=== PATIENT | male | born 1955 | race Caucasian/White ===

== ENCOUNTER 2023-10-12 22:59 | Inpatient (IN) | payer BC, MEDICARE, SELFPAY ==
[2023-10-12] VITALS (7 sets, daily range): BP systolic 131–153; BP diastolic 77–88; BMI 31.0; BMI 30.8
[2023-10-12 17:13] LABS: Glucose - Point of Care 106 mg/dl (70-99)
[2023-10-12 17:21] LABS: % Basophils 0.9 % (0-2); % Eosinophils 3.5 % (0-6); % Immature Granulocytes 0.2 % (0-0.5); % Lymphocytes 26.3 % (20.5-51.1); % Monocytes 13.4 % (1.7-9.3); % Neutrophils 55.7 % (42.2-75.2); Absolute Basophils 0.1 10^3/uL (0-0.2); Absolute Eosinophils 0.3 10^3/uL (0-0.7); Absolute Lymphocytes 2.1 10^3/uL (1.2-3.4); Absolute Monocytes 1.1 10^3/uL (0.1-0.6); Absolute Neutrophils 4.5 10^3/uL (1.4-6.5); Hematocrit 40.9 % (39.0-52.0); Mean Corp Hgb Conc. 34.2 g/dL (33.0-37.0); Mean Corpuscular Hgb 30.6 pg (27.0-31.0); Mean Corpuscular Volume 89.5 fL (80.0-94.0); Mean Platelet Volume 10.1 fL (7.4-10.4); Nucleated Red Blood Cells % 0 % (-); Platelet Count 319 10^3/uL (130-400); Red Blood Cell Count 4.57 10^6/uL (4.70-6.10); Red Cell Dist. Width 12.9 % (11.5-14.5); White Blood Cell Count 8.1 10^3/uL (4.8-10.8)
--- NOTE | 2023-10-12 17:26 | ED.GENMED ---
History of Present Illness
General
Chief Complaint: Headache
Time Seen by Provider: 10/12/23 17:12
Travel History
Have you had any contact with someone who has COVID-19?: No
Do you have any symptoms of coronavirus? Fever > 100 degrees, chills, cough, shortness of breath, sore throat, loss of taste or smell, muscle aches, or headache?: No
History of Present Illness
History of Present Illness:
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 Of note, the study was noted to be positive for this
condition. He felt well in the postrecovery area with normal vitals with the exception of a mild headache but otherwise no complaints. Then, as he was leaving he developed diplopia's described as 'seeing double' in a vertical direction. This
persists. His mild headache persists associated with slight nausea. He noted that he felt 'wobbly when walking' and very slight dizziness, not described as spinning or vertigo. He denies numbness, tingling, focal weakness, or other complaints.
Past History
Past History
ED Past Medical History: HTN, Hypercholesterolemia and Other (History of prostate cancer status post treatment)
ED Past Surgical History: Urological (Prostatectomy)
Social History
Tobacco: Non-smoker
Alcohol: Occasional
Drug: None
Personal:
Living: with family
Phy Exam
Physical Exam
Physical Exam:
(Late entry 9:55 AM October 18 2023)
AAO times three, pleasant, in nad
PERRL, no photophobia, EOMI, visual cash intact
neck no swelling, no bruit
hrt rrr
lung cta, no w/r/r
abd soft, nt, nd
extrem no c/c/e
neuro NIH = 0, speech clear, f to n nl, motor 5/5, sens intact, cn 2-12 intact
Skin warm well perfused
psuch appropriate
Note: pt reports diploplia only when both eyes open, resolves with each eye closed.
Scores
NIH Stroke Score
Level of Consciousness: 0 - Alert
LOC Questions: 0-Answers both correctly
LOC Commands: 0-Performs both correctly
Best Horizontal Gaze: 0-Normal
Visual Cash: 0=Normal, no visual loss
Facial Palsy: 0=Normal, symmetrical
Motor - Right Arm: 0=No drift 10 seconds
Motor - Left Arm: 0=No drift 10 seconds
Motor - Right Le-No drift 5 seconds
Motor - Left Le-No drift 5 seconds
Limb Ataxia: 0-Absent
Sensation: 0-Normal
Best Language: 0-No aphasia
Dysarthria: 0-Normal
Extinction and Inattention: 0-No abnormality
Total Score:: 0
Course
Orders/Labs/Results
Orders:
Orders
10/12/23 17:14
CT Head W/o Cont STROKE ALERT Urgent
Reason For Exam: double vision
10/12/23 17:16
Complete Blood Count/With Diff Urgent
Comprehensive Metabolic Panel Urgent
Prothrombin Time Urgent
10/12/23 17:23
CT Head/Neck Ang STROKE ALERT Urgent
Comment:
Reason For Exam: vision changes
10/12/23 19:08
MR Brain W/o & With Contrast Urgent
Comment:
Reason For Exam: dizzy, n, diploplia
Recent pill cam endoscopy?: No
10/12/23 19:11
Aspirin 325 mg .ROUTE .STK-MED ONE
10/12/23 19:13
Aspirin 325 mg PO NOW STA
10/12/23 22:50
Admit/Transfer Patient As Directed
Co-Sign Provider:
Level of Care: Inpatient admission
Assign to:: Telemetry
Physician / Group: [facility]
Diagnosis: Acute Stroke
Reason for Telemetry: CVA/TIA
Date to Stop Telemetry: 10/15/23
Time to Stop Telemetry: 11:00
Reason for Hospitalization: Neurology consult
Expected length of stay greater than two midnights?: Yes
ELOS- Estimated Length of Stay in days: 3
I certify the patient meets the requirements for IP care: Yes
10/12/23 22:52
Code Status As Directed
Resuscitation Status: Full Code
10/12/23 23:38
Acetaminophen [Tylenol/Feverall] 650 mg RECTAL Q4HPRN PRN
Acetaminophen [Tylenol] 650 mg PO Q4HPRN PRN
10/12/23 23:38
Case Management Consult ONCE
Case Management Consult: Discharge Planning
Comment: stroke/tia
DIETARY CONSULT Routine
Reason for Consult: stroke/TIA
NEUROLOGY CONSULT Routine
Consulting Provider: Barby Connolly
Was physician already notified: Yes
Proofer Black And White Routine
Activity As Directed
Activity Level: Out of Bed-Early Mobility
NIH Stroke Scale As Directed
Directions: Per protocol
Comment: every shift and with any change in condition or mental status
Neurological Checks As Directed
Frequency: q4h
Additional Instructions:: q4h x 24h upon admission to the floor, then qshift & with any change in condition
and mental status
Patient Education As Directed
Type: Stroke education packet
Comment: provide to patient and family
Pneumatic Compression Sleeves As Directed
Type: Knee high
Swallow Screening CVA/TIA ONLY As Directed
Comment: NPO until swallowing screening completed
If patient FAILS swallow screening:: NPO, Speech Therapy consult, Aspiration Precautions
If patient PASSES swallow screening, diet:: Cholesterol Lowering
Sodium, 2 Gram
Above diet order entered?: Yes- passed screening
Vital Signs As Directed
Frequency: Per unit guidelines
Ot Eval And Treat Routine
Pt Eval And Treat Routine
Activity Level: Out of Bed-Early Mobility
Speech Therapy Eval & Treat Routine
DX Deep Vein Thrombosis Video Routine
10/12/23 23:49
Diazepam [Valium] 10 mg PO HSPRN PRN
10/13/23 07:52
Basic Metabolic Panel IN AM
Cardiovascular Evaluation IN AM
Complete Blood Count/No Diff IN AM
Glycohemoglobin (HgbA1c) IN AM
Magnesium IN AM
10/13/23 08:00
Aspirin Chewable [Low Strength Aspirin] 81 mg PO DAILY
10/13/23 18:00
Atorvastatin [Lipitor] 40 mg PO QPM
10/14/23 08:00
Amlodipine [Norvasc] 5 mg PO DAILY
Lisinopril [Zestril] 5 mg PO DAILY
10/15/23 11:00
DC Protocol for Telemetry ONCE
Abnormal Lab Results
10/12/23 10/12/23
17:12 17:16
RBC 4.57 L 10^6/uL
(4.70-6.10)
Absolute Monos (auto) 1.1 H 10^3/uL
(0.1-0.6)
Monocytes % 13.4 H %
(1.7-9.3)
BUN 29 H mg/dl
(9-20)
Creatinine 1.4 H mg/dL
(0.7-1.3)
Glucose 101 H mg/dl
(70-99)
POC Glucose 106 H mg/dl
(70-99)
10/12/23 17:16
10/12/23 17:16
Vital Signs
Initial and Last Documented VS:
Initial Vital Signs
Temp Pulse Resp BP Pulse Ox
97.9 F 71 16 134/88 98
10/12/23 17:02 10/12/23 17:02 10/12/23 17:02 10/12/23 17:02 10/12/23 17:02
Last Documented Vital Signs
Temp Pulse Resp BP Pulse Ox
98.3 F 77 16 138/79 97
10/13/23 12:04 10/13/23 12:04 10/13/23 12:04 10/13/23 12:04 10/13/23 12:04
*Critical Care Note
Total Time (30-74mins, 75-104mins- exclusive of procedures): 35
Update Note
Update Note:
Patient presents to the Emergency Department with diplopia nausea slight headache
Number and Complexity of Problems Addressed at the Encounter
� Chronic conditions affecting care:
� Acute Exacerbation and/or Progression of Chronic Illness:
� Differential Diagnosis includes: But not limited to vertebral artery dissection, CVA, TIA, etc.
Amount and/or Complexity of Data to be Reviewed and Analyzed
� I performed an independent evaluation of and my interpretation is:
EKG:
CT:
The cervical carotid and vertebral arteries are patent. Minor calcified and noncalcified plaque in the proximal ICA, bilaterally, without hemodynamically significant stenosis, occlusion, or dissection.
No little [place] of [place] region aneurysm or stenosis.
No cerebral artery significant plaque, stenosis, thrombus, or occlusion.
Xrays: mr 2 mm acute infarct in the posterior left paramidline kacey adjacent to the inferior colliculus at the level of the fourth ventricle.
3 mm acute infarct in the right thalamus.
Laboratory Studies:
Other:
� Review of other/old records reveals: Prior ultrasound of carotids from 2014 'Carotid duplex evaluation demonstrates minimal hard plaque bilaterally, but no evidence of hemodynamically significant stenosis as per NASCET index
criteria.'
� Clinical information was obtained by an independent historian:
� Prescriptions/Medications Considered but not given:
� Further testing considered but not performed:
Risk of Complications and/or Morbidity or Mortality of Patient Management
� Social determinants of health affecting care:
� Discussion with other providers (PCP, Hospitalists, Consultants, etc):
� Escalation of care including admission/observation vs risk of discharge considered: 5:32 PM charge nurse alerted me of patient upon his arrival and I encouraged her to call stroke alert which was done. I immediately went to
the room that the patient and his , performed a physical exam, obtained a detailed history, and patient was escorted promptly to CT scan where he is at this time. I then spoke to neurology here, Dr. Collier, who is aware of history and physical,
exam, and agrees with CT/CTA at this time. I then spoke to Dr. Mackenzie's [phone], who also agrees with plan, including differential of rule out vertebral artery dissection versus TIA/CVA, etc. No further recommendations at this time, awaiting
scan report.
921 pm Multiple (total of 4) different convos with Dr Paredes with updates and also sent MR images, several convo's with Dr Connolly...all aware of evoltuion of case here...not tnk candidate given not disabling/low NIH and timing greater than 4.5
hrs...not IAT given no LVO. MRI does show acute stroke times two, ?post procedure related. Asa given, will admit. No further rec from either at this time, will admit, neuro checks, asa etc..
ED Attending Note
-
Portions of this chart may have been created with voice recognition software.� Occasional wrong word or��sound alike� substitutions may have occurred due to the inherent limitations of voice recognition software.
Discharge Plan
Departure
Patient Disposition: Admit
Date of Disposition: 10/12/23
Time of Disposition: 21:21
Admit to: Telemetry
Presentation/result/management discussed w/ accepting MD/DO: Hospitalist
Condition: Fair
Discharge Problem:
Acute CVA (cerebrovascular accident)
Interventions
Interventions:
*Risk Screen - Suicide Last Done: 10/12/23 23:32
*General Assessment Last Done: 10/12/23 23:32
*Neglect/Abuse Screening Last Done: 10/12/23 23:32
ED- Fall Risk Assessment Last Done: 10/12/23 23:32
*ED COVID-19 Vaccine History Last Done: 10/12/23 17:02
*Nursing Disposition Last Done: 10/12/23 23:32
ED- Neurological Assessment Last Done: 10/12/23 19:00
Discharge Date and Time
Discharge Date/Time: 10/12/23 23:32
[2023-10-12 17:31] LABS: INR 1.01; PT 13.1 Sec (11.4-14.6)
[2023-10-12 17:54] LABS: ALT (SGPT) 25 U/L (0-50); AST (SGOT) 23 U/L (17-59); Albumin 3.9 g/dl (3.5-5.0); Alkaline Phosphatase 66 U/L (38-126); Blood Urea Nitrogen 29 mg/dl (9-20); Carbon Dioxide 26 mmol/L (22-30); Chloride 102 mmol/L (98-107); Estimated Creatinine Clearance 61 ml/min; Glucose 101 mg/dl (70-99); Potassium 4.6 mmol/L (3.5-5.1); Sodium 136 mmol/L (135-145); Total Bilirubin 0.5 mg/dl (0.2-1.3); Total Protein 6.6 g/dl (6.3-8.2); eGFR 54.07
[2023-10-12] MEDS: ASPIRIN 325 MG PO (19:13)
--- NOTE | 2023-10-12 22:13 | W.PN.UPDATE ---
Update Note
Progress Note Update
This serves as an addendum to the H&P dictated by Ana Rosa Ortega on 10/12/2023.
I saw and examined the patient.
The [employer]PARTMENT or PA's note was reviewed and I agree with the note.
Comment:
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 Patient had an angiogram done today at
[facility] in [place] this morning and after the procedure he started to have diplopia and not feeling well overall associated with dizziness, mild headache, nausea, and some ataxia. His diplopia is more pronounced when he looks down and
straight. Diplopia persisted throughout the day and they contacted the physician who did the procedure who instructed him to come to the hospital due to concerns for stroke related to procedure. He denies any slurred speech, focal weakness,
paresthesias. Denies fevers or chills. Denies chest pain or shortness of breath. He does have chronic back pain and neck discomfort and he had the diagnosed with procedure due to symptoms of presyncope whenever he would looked to the left side.
In the ER, labs unremarkable, CT scan of the head no acute endocrine abnormality, CTA of the head and neck no significant stenosis, MRI of the brain shows acute infarct in the posterior left paramidline kacey adjacent to the inferior colliculus at
the level of the fourth ventricle and 3 mm acute infarct in the right thalamus. He was referred to hospitalist for further evaluation.
Physical exam:
General: Well Developed, Well Nourished and No Apparent Distress
HEENT: Normocephalic, Atraumatic and Moist Mucous Membranes
Respiratory: Clear to Auscultation; Negative Wheezes, Rales or Rhonchi
Cardiac: Regular Rhythm and S1/S2
GI: Soft, Nontender and Nondistended
Musculoskeletal: No Clubbing, No Cyanosis and No Edema
Neuro: Awake, Alert and Oriented, 5 out of 5 all 4 extremity, no sensory deficit, visual van no deficits appreciated. Diplopia persistent. Extraocular muscles intact.
Psych: Calm
A/P:
Acute stroke--> out of the time window for TNKase, continue with aspirin, statins and check fasting lipids, NIH monitor, PT OT eval, neurology consult. Will give further recommendations based on his clinical course and will defer further workup if
needed to neurology.
--- NOTE | 2023-10-12 23:07 | HPS.HSE ---
Family Physician
-
Family Physician: Casper Jo
Chief Complaint
-
Double Vision
History of Present Illness
This is a 68 year old male with past medical history of hypertension and hyperlipidemia who presents to the emergency department post angiogram with double vision and headache. He reports he felt a migraine come on immediately after the angiogram
and double vision start on the ride home from his procedure. His symptoms prompted him to call his doctor who recommended he come to the emergency department. Additionally, he reports nausea since the double vision started. He denies fever, chills,
and sweats. He denies focal numbness, tingling or weakness. He denies prior history of stroke.
Medical History
Past Medical History
Past Medical History: Reports Other
Additional Past Medical History:
Essential Hypertension
Hyperlipidemia
Ocular Migraine
Prostate Cancer
Past Surgical History: Reports Other
Additional Past Surgical History:
Prostatectomy
Social History
Tobacco: Former Smoker (Quit over 30 years ago)
Alcohol: Occasional
Family History
Family History: Not pertinent
Allergies / Home Medications
Allergies reflects when Allergies were last updated in [facility].
Home Medications with original date entered in [facility]
Allergy/Medication List:
Allergies
Allergy/AdvReac Type Severity Reaction Status Date / Time
No Known Allergies Allergy Verified 10/12/23 17:05
Home Medications
amlodipine 5 mg tablet 5 mg PO DAILY 03/05/15
Excedrin 1 tab PO DAILY PRN headache 10/12/23
Tylenol 1 dose PO DAILY PRN headache 10/12/23
atorvastatin 40 mg tablet 40 mg PO QPM 10/12/23
diazepam 10 mg tablet 10 mg PO HS PRN sleep 10/12/23
lisinopril 5 mg tablet 5 mg PO DAILY 10/12/23
sildenafil 50 mg tablet 50 mg PO DAILYPRN PRN ed 10/12/23
Review of Systems
-
A 12 point ROS was completed and negative except as noted: Yes
Constitutional: Denies Fever or Chills
Respiratory: Denies Cough or Trouble Breathing
Cardiac: Denies Chest Pain or Palpitations
Neurological: Reports See HPI
Physical Exam
Vital Signs
Vital Signs
Temp Pulse Resp BP Pulse Ox
97.9 F 83 19 140/82 92
10/12/23 17:02 10/12/23 23:00 10/12/23 23:00 10/12/23 21:00 10/12/23 23:00
Physical Exam
General: Well Developed and Well Nourished
HEENT: Anicteric and Moist mucous membranes
Respiratory: Clear and Non Labored Respirations
Cardiac: S1/S2 and Regular Rhythm; No Carotid Bruits
GI: Soft and Non Tender
Musculoskeletal: No Clubbing, No Cyanosis and No Edema
Skin: Warm and Dry
Neuro: Awake, Alert, Oriented and Other (4th Cranial Nerve Palsy); No Facial Droop or Tremors
Psych: Calm
Laboratory Results
-
10/12/23 17:16
10/12/23 17:16
Laboratory Results
PT 13.1 Sec (11.4-14.6) 10/12/23 17:16
INR 1.01 10/12/23 17:16
Total Bilirubin 0.5 mg/dl (0.2-1.3) 10/12/23 17:16
AST 23 U/L (17-59) 10/12/23 17:16
ALT 25 U/L (0-50) 10/12/23 17:16
Alkaline Phosphatase 66 U/L (38-126) 10/12/23 17:16
Data Reviewed
-
CT Scan: Report Reviewed by me
Lab Data: Labs Reviewed by me
Impression/Plan
-
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
-Consult Neurology
-Consult PT/OT
-Continue aspirin
Essential Hypertension
-Allow permissive hypertension until 12pm on October 12
-Resume meds on SundayOctober 13
Hyperlipidemia
-Continue atorvastatin
Elevated Creatinine, unknown baseline
-Recheck creatinine in AM
Hx Prostate CA s/p Prostatectomy
DVT proph: SCDs
Code Status: Full Code
[2023-10-13] MEDS: TYLENOL 650 MG PO (00:10)
--- NOTE | 2023-10-13 01:55 | PTCARENOTE ---
Pt. arrived to unit from ED via stretcher. Pt. able to safely ambulate into room 317-2 on . Pt. AAOx3 and able to make needs known. NIH 0. Patient has eyepatch to right eye. PRN tylenol administered for c/o MEADOWS. at bedside during
admission. Oriented to unit. Call robertson within reach. Plan of care ongoing.
[2023-10-13 03:26] VITALS: BP 112/78
[2023-10-13 07:30] VITALS: BP 116/77
[2023-10-13 08:25] LABS: Hematocrit 40.4 % (39.0-52.0); Hemoglobin 13.5 g/dL (13.0-18.0); Mean Corp Hgb Conc. 33.4 g/dL (33.0-37.0); Mean Corpuscular Hgb 30.5 pg (27.0-31.0); Mean Corpuscular Volume 91.2 fL (80.0-94.0); Mean Platelet Volume 10.6 fL (7.4-10.4); Platelet Count 282 10^3/uL (130-400); Red Blood Cell Count 4.43 10^6/uL (4.70-6.10); Red Cell Dist. Width 12.9 % (11.5-14.5); White Blood Cell Count 7.4 10^3/uL (4.8-10.8)
[2023-10-13 08:42] VITALS: BP 142/81; PULSE 86; O2SAT 95
[2023-10-13] MEDS: LOW STRENGTH ASPIRIN 81 MG PO (08:43)
[2023-10-13 08:56] LABS: Blood Urea Nitrogen 30 mg/dl (9-20); Calcium 9.1 mg/dl (8.4-10.2); Carbon Dioxide 26 mmol/L (22-30); Chloride 107 mmol/L (98-107); Estimated Creatinine Clearance 66 ml/min; Glucose 99 mg/dl (70-99); HDL Cholesterol 42 mg/dl; LDL Cholesterol, Calculated 94 mg/dl; Magnesium 2.1 mg/dl (1.6-2.3); Potassium 4.8 mmol/L (3.5-5.1); Sodium 138 mmol/L (135-145); Total Cholesterol 168 mg/dl (50-199); Triglyceride 161 mg/dl (10-149); Very Low Density Lipoprotein 32 mg/dl (0-30)
[2023-10-13 08:57] VITALS: BP 142/81; PULSE 86; O2SAT 95
[2023-10-13 09:18] LABS: Glycohemoglobin (HgbA1c) 5.7 % (4.0-5.6)
--- NOTE | 2023-10-13 09:51 | W.PN.HOSP.TC ---
Addendum entered and electronically signed by Sal Fairchild MD 10/13/23 13:32:
Total time spent on d/c = 31 min. This included today's physical exam, progress note, review of laboratory and diagnostic data, preparation of discharge documents and prescriptions, and discussions about the pt's hospital course and discharge plan
with the patient and other medical sociologist involved in the patient's care.
Original Note:
Today's Communication/Plan
-
possible discharge later today after seen by neurology.
Assessment / Plan
Assessment / Plan
Gen: NAD, AAOx3.
Eyes: EOMI, PERRLA, no scleral icterus.
Neck: supple.
CV: RRR, +S1/S2, no m/r/g.
Resp: CTAB, no rales, wheezes, or rhonchi.
Abd: +BS, soft, NT, ND
Skin: No rashes.
Neuro: CN 2-12 intact, non-focal.
Psych: Normal mood and affect.
CTA head/neck: The cervical carotid and vertebral arteries are patent. Minor calcified and noncalcified plaque in the proximal ICA, bilaterally, without hemodynamically significant stenosis, occlusion, or dissection. No [place] region
aneurysm or stenosis. No cerebral artery significant plaque, stenosis, thrombus, or occlusion.
MRI brain: 2 mm acute infarct in the posterior left paramidline gerardo adjacent to the inferior colliculus at the level of the fourth ventricle. 3 mm acute infarct in the right thalamus.
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
-Consult Neurology
-Consult PT/OT
-Continue ASA/statin
-Tele with SR
Essential Hypertension
-Allow permissive hypertension until 2358 on October 12
-Resume meds on SundayOctober 13
Hyperlipidemia
-Continue atorvastatin
Elevated Creatinine:
-unknown baseline
-Cr stable at 1.3
-there is no MAYTE
Hx Prostate CA s/p Prostatectomy
FULL/SCDs
Anticipated Discharge: Today
Subjective/Interval History
-
Date of Service: October 13, 2023
Still with double vision.
Objective Data
-
Labs:
Laboratory Results
10/13/23
07:52
WBC 7.4
Hgb 13.5
Hct 40.4
Plt Count 282
Sodium 138
Potassium 4.8
Chloride 107
Carbon Dioxide 26
BUN 30 H
Creatinine 1.3
Glucose 99
Calcium 9.1
Vital Signs:
Vital Signs
Temp Pulse Resp BP Pulse Ox
98.2 F 77 16 116/77 96
10/13/23 07:30 10/13/23 07:30 10/13/23 07:30 10/13/23 07:30 10/13/23 07:30
I&O
10/12/23 10/13/23 10/14/23
06:59 06:59 06:59
Intake Total 240 / 240
Balance 240 / 240
--- NOTE | 2023-10-13 11:42 | CM ---
Addendum entered by Peri Bob 10/13/23 12:15:
Error; Patient uses [facility], not [facility]. He has 12 steps to enter inot his home.
Original Note:
CM spoke with patient at bedside. CM introduced self and clinical role. Patient verbalized understanding. Patient lives at home with his . 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 His plans to pick him up upon discharge. He shared that he owns no
DME. He walks independently at baseline. He stated he continues to walk independently, but is still experiencing some double vision. He uses [facility]. His PCP office is [facility]. He denies any +SDOH's. He is agreeable to
home health care if needed.
[2023-10-13 12:04] VITALS: BP 138/79
--- NOTE | 2023-10-13 13:19 | PTOTSP ---
SPEECH THERAPY SWALLOW EVALUATION:
Patient exhibits grossly functional oropharyngeal swallow at this time. Patient remains at risk for dysphagia given acute CVA in kacey and thalamus. Recommend continue Regular texture diet, thin liquids. Medications whole with liquid as best
tolerated. Aspiration precautions: Upright positioning; Small single sips/bites; Slow rate of intake. Speech therapy to follow briefly at the acute care level to assess diet tolerance and modify as appropriate. Speech therapy to also follow for
comprehensive Speech/language/cognitive communication evaluation; However at this time there are not overt signs of speech/language/cognitive communication impairments. Patient reported transient episode of slurred speech when first arrived at
hospital that quickly resolved. Patient reporting he feels at baseline level of functioning at this time.
RECOMMEND:
1) Regular texture diet, thin liquids
2) Medications whole with liquid as best tolerated
3) Aspiration precautions: Upright positioning; Small single sips/bites; Slow rate of intake
4) Speech therapy to follow briefly at the acute care level to assess diet tolerance and modify as appropriate, and for comprehensive Speech/language/cognitive communication evaluation
--- NOTE | 2023-10-13 13:32 | W.DCSUMMARY ---
Addendum entered and electronically signed by Sal Fairchild MD 10/13/23 13:40:
Lipitor was increased to 80 mg at bedtime
Original Note:
Discharge Summary
Discharge Data
Date of Admission: 10/12/23
Date of Discharge: 10/13/23
-
Pending Results: No
Hospital Course
Primary diagnoses:
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
Secondary diagnoses:
Chronic kidney disease stage 3a (likely)
Essential Hypertension
Hyperlipidemia
h/o Prostate CA s/p Prostatectomy
Consultants:
Neurology
Imaging:
CTA head/neck: The cervical carotid and vertebral arteries are patent. Minor calcified and noncalcified plaque in the proximal ICA, bilaterally, without hemodynamically significant stenosis, occlusion, or dissection. No [place] region
aneurysm or stenosis. No cerebral artery significant plaque, stenosis, thrombus, or occlusion.
MRI brain: 2 mm acute infarct in the posterior left paramidline gerardo adjacent to the inferior colliculus at the level of the fourth ventricle. 3 mm acute infarct in the right thalamus.
Hospital course: 68-year-old male who presented yesterday evening with chief complaint of diplopia as outlined in the H&P done yesterday. Imaging above and notable for acute left gerardo and right thalamus strokes. Patient's home statin was
continued. He was placed on aspirin. Telemetry showed sinus rhythm. He was seen in consultation by neurology and cleared for discharge. He will need follow-up with neuro-ophthalmology and neuro optometry.
Unexpected rapid recovery.
Discharge Plan
-
Patient Disposition: Home (Routine Discharge)
Discharge Diagnosis/Procedures: Acute Left Gerardo and Right Thalamus Strokes
Condition: Good
Diet: Other diet
Additional Diets: Heart healthy
Activity: As tolerated
Driving Restrictions: No driving
Bathing Restrictions: None
Activity Restrictions/Additional Instructions:
You need to follow-up with neuro-ophthalmology and neuro optometry
Referrals:
Casper Jo, DO [Family Provider] - in less than 1 week
Prescriptions:
New
aspirin [Children's Aspirin] 81 mg Tablet,Chewable
81 mg PO DAILY Qty: 0 0RF
Continued
amlodipine 5 MG tablet
5 mg PO DAILY
atorvastatin 40 mg tablet
40 mg PO QPM
lisinopril 5 mg tablet
5 mg PO DAILY
diazepam 10 mg tablet
10 mg PO HS PRN (Reason: sleep)
Patient Comments:
10/12/2023: last filled 09/18/23, 30 tabs for 30 days from [facility]
Excedrin
1 tab PO DAILY PRN (Reason: headache)
Tylenol
1 dose PO DAILY PRN (Reason: headache)
sildenafil 50 mg tablet
50 mg PO DAILYPRN PRN (Reason: ed)
Discharge Orders:
Discharge Patient (As Directed); Ordered 10/13/23
Ordered By: Sal Fairchild
Discharge Date and Time
Print Language: TURKMEN
--- NOTE | 2023-10-13 13:35 | CON.NEURO4 ---
Consultation - Neurology 4
-
CONSULTING PHYSICIAN: Cathleen
REFERRING PHYSICIAN: Naomie
DICTATED BY: Cathleen
DATE/TIME OF REQUEST: 10/12/23 in the evening
DATE/TIME OF CONSULTATION: 10/13/23 at 1230
Reason for Consultation: stroke
History of Present Illness:
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
interventional radiology with a complaint of diplopia and headache. He had the onset of bilateral kaleidoscope vision and vertical diplopia on the ride home from his procedure along with a mild headache. He does have a history of bilateral
kaleidoscope vision and mild after going head pain/migraine in the past but never associated diplopia. He called his doctor who recommended that he come to the ER. He had also had some nausea with this. He reports that the diplopia is better when
looking up but is still a significant issue being straight ahead and down. This had affected his balance. He thinks that his symptoms may have gotten a little bit better today compared to yesterday. He had a HCT, CTA and MRI brain all done in the
ER.
He takes atorvastatin 40mg daily at home but no antiplatelet agent.
Past Medical History:
Essential Hypertension
Hyperlipidemia
Ocular Migraine
Prostate Cancer
Past Surgical History:
Prostatectomy
diagnostic angiogram done yesterday by [facility]
Social History
Tobacco: Former Smoker (Quit over 30 years ago)
Alcohol: Occasional
Family History
Family History: Not pertinent
Allergies
No Known Allergies Allergy (Verified 10/12/23 17:05)
Home Medications
�Medication �Instructions �Recorded
amlodipine 5 mg tablet 5 mg PO DAILY 03/05/15
Excedrin 1 tab PO DAILY PRN headache 10/12/23
Tylenol 1 dose PO DAILY PRN headache 10/12/23
diazepam 10 mg tablet 10 mg PO HS PRN sleep 10/12/23
lisinopril 5 mg tablet 5 mg PO DAILY 10/12/23
sildenafil 50 mg tablet 50 mg PO DAILYPRN PRN ed 10/12/23
aspirin 81 mg chewable tablet 81 mg PO DAILY #0 tabs 10/13/23
(Children's Aspirin)
atorvastatin 80 mg tablet (Lipitor) 80 mg PO HS #30 tabs 10/13/23
Review of Symptoms:
Patient denies any fever, headache, chest pain, shortness of breath, GI or symptoms.
�Per the HPI.�All systems are reviewed negative except above.
Vital Signs
Temp Pulse Resp BP Pulse Ox
98.3 F 77 16 138/79 97
10/13/23 12:04 10/13/23 12:04 10/13/23 12:04 10/13/23 12:04 10/13/23 12:04
Lab Results
10/13/23 07:52
10/13/23 07:52
PT 13.1 Sec (11.4-14.6) 10/12/23 17:16
INR 1.01 10/12/23 17:16
Sodium 138 mmol/L (135-145) 10/13/23 07:52
Potassium 4.8 mmol/L (3.5-5.1) 10/13/23 07:52
BUN 30 mg/dl (9-20) H 10/13/23 07:52
Glucose 99 mg/dl (70-99) 10/13/23 07:52
Calcium 9.1 mg/dl (8.4-10.2) 10/13/23 07:52
LDL Cholesterol, Calc 94 mg/dl 10/13/23 07:52
Physical Exam:
The patient is afebrile, heart sounds S1 and S2 are regular, and chest is clear to auscultation bilaterally.
NIH Stroke Scale:
I performed the NIH stroke scale on the patient on 10/13/23 at 1230. The patient scored 0 points on the NIH stroke scale assessment.
Neurologic Examination:
The patient is awake, alert and oriented x 3. He is able to follow commands and answer questions appropriately. There is no aphasia or dysarthria. On cranial nerve assessment, pupils are 3 mm bilateral, round and reactive to light and
accommodation. Visual van are full. Extraocular movements are intact. Facial sensations are intact and bilaterally symmetrical, there is no facial asymmetry. Hearing is intact bilaterally to normal conversation volume. Tongue palate and uvula
are midline. Sternocleidomastoid strengths are full bilaterally. Motor strengths are 5/5 bilateral upper and lower extremities on medical research [place] scale. There is no drift or involuntary movement noted. Deep tendon reflexes are 2+ bilateral
upper and lower extremities and Babinski is absent bilaterally. Sensations of pain, touch, temperature and vibration are intact and bilaterally symmetrical. There was no extinction noted on double simultaneous stimulation. Coordination is intact by
finger to nose bilaterally.
Neuro Imaging:
HCT:
No acute intracranial abnormality noted.
Aspects score: 10.
CTA head/neck:
The cervical carotid and vertebral arteries are patent. Minor calcified and noncalcified plaque in the proximal ICA, bilaterally, without hemodynamically significant stenosis, occlusion, or dissection.
No [place] region aneurysm or stenosis.
No cerebral artery significant plaque, stenosis, thrombus, or occlusion.
MRI brain:
2 mm acute infarct in the posterior left paramidline kacey adjacent to the inferior colliculus at the level of the fourth ventricle.
3 mm acute infarct in the right thalamus.
Impression:
MARTA BRAR is a 68 year old M who has presented to the hospital with bihemispheric ischemic stroke that occurred just after a diagnostic angiogram done yesterday in workup for bowhunter's syndrome.
Patient has the following risk factors for their symptoms: age, htn, hld, cancer history, migraine history
IV Tenecteplase/IAT candidacy: out of the window for TNK, CTA negative for LVO for IAT
Recommendations:
-reviewed imaging results with patient and his and provided a copy
-BP goal is normotension.
-continue ASA 81mg daily added here.
- Check hemoglobin A1C. Goal is normoglycemia.
- increase atorvastatin to 80mg by mouth daily at bedtime. LDL is 94. Goal LDL after stroke is <70.
-PT/OT/ST evaluations
- DVT prophylaxis
-continue neurochecks
-outpatient pt
-can get an outpatient echo; does not need Holter/Linq as etiology of stroke is very likely his preceding procedure
-no driving unless diplopia improves and cleared by neuro-optometry/neuro-ophtho; provided contact info for Dr. Manjula Cutler (neuro-optometry/rehab in [place]) and [facility]
-f/u with PCP in the next few days; f/u in neurology clinic in 2-3 mos
-reviewed s/s of stroke and importance of calling 911 should these recur
Discussed patient care with: patient, patients' , Dr. Akbar, Dr. Fairchild
== END 2023-10-13 14:10 | disposition home or self-care (01) | DRG 66 ==
LOC: 3 WEST ACU 22:59
PROVIDERS: Physician Assistant Medical; ADMITTING PHYSICIAN Hospitalist; ATTENDING PHYSICIAN Internal Medicine; CONSULT PHYSICIAN Psychiatry & Neurology Neurology; EMERGENCY PHYSICIAN Emergency Medicine; FAMILY PHYSICIAN Family Medicine
DX: I63.9 Cerebral infarction, unspecified (principal); N18.31 Chronic kidney disease, stage 3a; I12.9 Hypertensive chronic kidney disease with stage 1 through stage 4 chronic kidney disease, or unspecified chronic kidney disease; E78.5 Hyperlipidemia, unspecified; H53.2 Diplopia; G89.29 Other chronic pain; M54.9 Dorsalgia, unspecified; R79.89 Other specified abnormal findings of blood chemistry; Z79.899 Other long term (current) drug therapy; Z87.891 Personal history of nicotine dependence; Z85.46 Personal history of malignant neoplasm of prostate; Z90.79 Acquired absence of other genital organ(s)
CPT/HCPCS: 70450; 70496; 70498; 70553; 80048; 80053; 80061; 82962; 83036; 83735; 85025; 85027; 85610; 92610; 97129; 97162; 97166; 99285; A9575; Q9967

== ENCOUNTER 2023-10-25 15:33 | Outpatient (RCR) | payer BC, SELFPAY | END 2023-10-25 23:59 | disposition home or self-care (01) | LOC: ROT 15:33 | PROVIDERS: ATTENDING PHYSICIAN Family Medicine | DX: I69.312 Visuospatial deficit and spatial neglect following cerebral infarction (principal); H53.2 Diplopia; Z73.6 Limitation of activities due to disability | CPT/HCPCS: 97110; 97167 ==

== ENCOUNTER 2023-11-26 16:40 | Outpatient (RCR) | payer BC, SELFPAY | END 2023-11-26 23:59 | disposition home or self-care (01) | LOC: ROT 16:40 | PROVIDERS: ATTENDING PHYSICIAN Family Medicine | DX: I69.398 Other sequelae of cerebral infarction (principal); H53.2 Diplopia | CPT/HCPCS: 97110; 97530; 97535 ==

== ENCOUNTER → 2024-01-11 08:06 | Outpatient (REF) | payer BC, SELFPAY | LOC: HWRCS 08:06 | PROVIDERS: ATTENDING PHYSICIAN Nurse Practitioner Adult Health; FAMILY PHYSICIAN Family Medicine | DX: I63.9 Cerebral infarction, unspecified (principal) | CPT/HCPCS: 93306 ==

== ENCOUNTER → 2024-02-26 08:40 | Outpatient (REF) | payer BC, SELFPAY | LOC: RCS 08:40 | PROVIDERS: ATTENDING PHYSICIAN Nuclear Medicine Nuclear Cardiology; FAMILY PHYSICIAN Family Medicine | DX: I10 Essential (primary) hypertension (principal); R93.1 Abnormal findings on diagnostic imaging of heart and coronary circulation; Q24.5 Malformation of coronary vessels; I34.0 Nonrheumatic mitral (valve) insufficiency | CPT/HCPCS: 93307 ==

== ENCOUNTER → 2024-05-29 08:22 | Outpatient (REF) | payer BC, SELFPAY | LOC: RCS 08:22 | PROVIDERS: ATTENDING PHYSICIAN Nuclear Medicine Nuclear Cardiology; FAMILY PHYSICIAN Family Medicine | DX: I10 Essential (primary) hypertension (principal); R93.1 Abnormal findings on diagnostic imaging of heart and coronary circulation; Z86.73 Personal history of transient ischemic attack (TIA), and cerebral infarction without residual deficits; E78.5 Hyperlipidemia, unspecified; I49.3 Ventricular premature depolarization | CPT/HCPCS: 93017; 93350 ==